=== PATIENT | female | born 1945 | race Caucasian/White ===

== ENCOUNTER 2022-03-15 11:30 | Outpatient (RCR) | payer OTHER, SELFPAY ==
--- NOTE | 2022-03-01 12:26 | ST.OPIE ---
Visit Care Team Role Provider Type Dora Price DO Family Provider Non-Staff Primary Care Provider Specialty: Family Practice Address: [address] [place] [address], [place], [address] Email: Attending Provider Referring Provider Specialty: Address: Phone: Fax: Email: Speech-Language Pathology Initial Evaluation ESCROW SECRETARY Clinical Swallow Evaluation Start: 03/01/22 11:26 Freq: Status: Active Protocol: Document 03/01/22 11:26 ZS (Rec: 03/01/22 11:29 ZS [id number]) Clinical Swallow Evaluation Session Time Visit Start Time 11:30 Visit Stop Time 12:00 Total Visit Minutes 30 Visit Information Visit Number Initial Evaluation Plan of Care Dates 03/01/2022 - 09/21/2022 Insurance Information [place] Referral Referring Provider Dr. Lanny Ferrari Reason for Referral Swallow evaluation as baseline before DBS treatment for tremors Setting Assessment Location Outpatient Care Visit Type Note Type Initial evaluation Next Note Type Next Note Type Treatment Note Patient Information Identification Type Name History Maryellen is a 76 year old female pursuing deep brain stimulation for tremor. Prior to beginning this treatment, she is getting a swallow evaluation to determine baseline skills as DBS can result in increased swallowing difficulty. Maryellen reported concerns for her voice given her vocal tremor, stating her and others have a hard time understanding her when she is speaking. She stated she does better when engaged in conversation, but can have difficulty with answers to quick questions. Maryellen added that she received a botox injection about 2 weeks ago in the back of her neck to reduce tremors in her neck for increased head stability, and added they increased the dosage for this injection. She stated since this injection, she has had increased difficulty swallowing as food will not go straight down the way it used to but does not feel like it gets stuck. Maryellen stated she notices the most difficulty with pills and added that she needs to take smaller bites right now because she cannot open her mouth as much as she used to. Subjective Observations Maryellen arrived on time and agreed to participate in all assessment activities. Reported by Patient Other Symptoms Difficulty swallowing pills Current Diet Regular,Thin liquids Baseline Feeding Method Independent in self-feeding Objective Assessment Mental Status Alert,Responsive,Cooperative Oral Integrity WFL Dentition Within normal limits Lip Function Within normal limits Observation of Lips at Rest Symmetrical Pucker Within normal limits Lip Retraction Within normal limits Alternating Pucker/Lip Retraction Within normal limits Tongue Function Within normal limits Observations of Tongue at Rest Within normal limits Tongue Protrusion Within normal limits Tongue Lateralization Within normal limits Jaw Function Within normal limits Observations of Jaw at Rest Within normal limits Jaw Opening Within normal limits Jaw Closing Within normal limits Hard/Soft Palate Function Within normal limits Observations of Hard/Soft Palate Within normal limits Comment Maryellen presented with symmetrical features at rest and in motion. Dentition was present and WNL. Strength and ROM of jaw, tongue, and lips was WNL. Mild facial tremors noted when initiating movement , but these subsided as Maryellen moved. Vocal tremor and slow rate of speech observed and remained consistent throughout evaluation, however, intelligibility was 100%. Structure and function of oral mechanism appears WFL for the purposes of speech and swallowing. Food and Liquid Trials Position During Assessment Upright (90 degrees),In chair Liquids Trialed Thin Solids Trialed Puree,Dysphagia Mechanical, Mechanical Soft,Regular Administration Type Tea spoon,Cup single sip,Cup consecutive sips,Self-feeding Oral Impairment Within normal limits Oral Phase Comments No anterior loss of bolus. Maryellen stated she has difficulty opening her mouth wide to allow for food to enter her oral cavity and limited ROM of mouth was observed during eating, though appeared WFL. She exhibited a sufficient labial seal around the spoon to clear liquid and opened her mouth wide enough to accept a variety of appropriate bolus sizes. Mastication was timely and efficient and no oral residue was observed following PO trials. Pharyngeal Impairment Within normal limits Pharyngeal Phase Comments Audible swallows heard for each swallow. No overt signs or symptoms of aspiration observed. Pt reported difficulty swallowing pudding and cookie as well as just cookie, stating it felt like it wasn't moving down like it used to. Fatigue/Endurance Endurance WNL Comment No concerns for endurance at this time. Findings Swallowing Function Within normal limits Severity of Swallow Impairment Within normal limits Comment The pt presents with swallow function WNL based on results of bedside swallow evaluation. Due to stated difficulty with food moving through esophagus , a modified barium swallow study is recommended to visualize pharyngeal and esophageal swallow. Pt to return to outpatient clinic for evaluation of voice to determine exercises to help increase ease in communication with and other communication partners. Impact on Safety and Functioning No limitations Recommendations Instrumental Assessment Yes Frequency once a week Duration 45 minutes Recommended Solids Regular Recommended Liquids Thin Safety Precautions/Swallowing Feed only when alert,Reduce Recommendations distractions,Remain upright ( 90 degrees) during all oral intake,Small bites and sips when eating,Slow rate; swallow between bites Medication Recommendations As Tolerated Education Patient/Caregiver Education Described results of evaluation,Patient expressed understanding of evaluation, Patient expressed agreement with goals & treatment plans, Patient expressed understanding of feeding recommendations,Patient requires further education/ training Goals Short-term Goals 1. Pt will participate in modified barium swallow study to inform plan of care. 2. Pt will participate in voice evaluation to determine treatment plan.
--- NOTE | 2022-03-01 12:26 | ST.OPPOC ---
Physical, Occupational & Speech Therapy At [facility] Visit Care Team Role Provider Type Dora Price DO Family Provider Non-Staff Primary Care Provider Address: [address] [place] [address], [place], [address] Attending Provider Referring Provider Address: Phone: Fax: Speech Pathology Plan of Care Plan of Care Dates 03/01/2022 - 09/21/[address] Lanny Ferrari Patient History Maryellen is a 76 year old female pursuing deep brain stimulation for tremor. Prior to beginning this treatment, she is getting a swallow evaluation to determine baseline skills as DBS can result in increased swallowing difficulty. Maryellen reported concerns for her voice given her vocal tremor, stating her and others have a hard time understanding her when she is speaking. She stated she does better when engaged in conversation, but can have difficulty with answers to quick questions. Maryellen added that she received a botox injection about 2 weeks ago in the back of her neck to reduce tremors in her neck for increased head stability , and added they increased the dosage for this injection. She stated since this injection, she has had increased difficulty swallowing as food will not go straight down the way it used to but does not feel like it gets stuck. Maryellen stated she notices the most difficulty with pills and added that she needs to take smaller bites right now because she cannot open her mouth as much as she used to. Short-term Goals 1. Pt will participate in modified barium swallow study to inform plan of care. 2. Pt will participate in voice evaluation to determine treatment plan. Comment: Electronically Signed by: ROMA Ruiz 03/01/22 8220 If you are in agreement with this Plan of Care, please return a signed and dated copy. I have reviewed this Plan of Care and certify that the skilled therapy services above are required to meet the patient?s needs. Physician Signature Date Printed Name and Credentials Clinical Instructor Signature Printed Name and Credentials
--- NOTE | 2022-03-08 13:28 | ST.OPTN ---
Visit Care Team Role Provider Type Dora Price DO Family Provider Non-Staff Primary Care Provider Address: [address] [place] [address], [place], [address] Attending Provider Referring Provider Address: Phone: Fax: FAA CERTIFIED POWERPLANT MECHANIC Treatment Note FAA CERTIFIED POWERPLANT MECHANIC Treatment Note Start: 03/08/22 12:16 Freq: Status: Active Protocol: Document 03/08/22 12:17 ZS (Rec: 03/08/22 12:19 ZS [id number]) Speech Pathology Treatment Note Session Time Visit Start Time 11:30 Visit Stop Time 12:05 Total Visit Minutes 40 Visit Information Visit Number 1 Plan of Care Dates 03/01/2022 - 09/21/2022 Insurance Information [facility] Treatment Setting Outpatient Care Visit Type Note Type Treatment Note Next Note Type Next Note Type Treatment Note General Information Patient History Maryellen is a 76 year old female pursuing deep brain stimulation for tremor. Prior to beginning this treatment, she is getting a swallow evaluation to determine baseline skills as DBS can result in increased swallowing difficulty. Maryellen reported concerns for her voice given her vocal tremor, stating her and others have a hard time understanding her when she is speaking. She stated she does better when engaged in conversation, but can have difficulty with answers to quick questions. Maryellen added that she received a botox injection about 2 weeks ago in the back of her neck to reduce tremors in her neck for increased head stability, and added they increased the dosage for this injection. She stated since this injection, she has had increased difficulty swallowing as food will not go straight down the way it used to but does not feel like it gets stuck. Maryellen stated she notices the most difficulty with pills and added that she needs to take smaller bites right now because she cannot open her mouth as much as she used to. Subjective Identification Type Name Identification Reconciled With Medical Record Observations/Patient Presentation Maryellen arrived on time and agreed to participate in all assessment activities. She reported decreased neck strain from last botox injection, but stated she continues to get neck pain/stiffness and headaches when she looks down for long periods of time or if she has a busy schedule. Chief Complaint(s) Swallowing,Voice Objective Short Term Goals 1. Pt will participate in modified barium swallow study to inform plan of care. 2. Pt will participate in voice evaluation to determine treatment plan. Treatment Activities Completed voice evaluation. Provided update on referral for modified barium swallow study. Assessment Assessment of Improvement Maryellen produced a prolonged ah with an average time of 2. 2 seconds, which is significantly impaired. Difficulty sustaining ah was due to vocal tremor, which disrupted airflow and Maryellen' s ability to sustain a prolonged vowel. Improvement noted with sustaining /s/ and /z/, though her s/z ratio was 1.5, which is mildly impaired. She achieved a high pitch of 588 Hz and a low pitch of 68 Hz, with an average high of 527.6 Hz and an average low pitch of 79.3 Hz. Her average loudness was 70.6 dB, which she maintained across all trials. Increased loudness to 71 dB for paragraph reading and decreased loudness to 68 dB during conversational speech. Maryellen completed the voice handicap index (VHI) and results place her total score at 53, indicating a moderate impact of her voice on daily functioning. Primary impairment noted is vocal tremor, which is noted to be moderate. Reviewed with Patient Goals Plan Amount of Therapy Recommended 6 Months Frequency of Treatment Once a Week Length of Session 45 Minutes Therapeutic Contents Swallowing/Feeding,Voice Training Provided Patient/Caregiver Instruction Plan of Care,Questions/ Concerns Therapy Recommendations Continue with Current Program
--- NOTE | 2022-03-15 13:13 | ST.OPTN ---
Visit Care Team Role Provider Type Dora Price DO Family Provider Non-Staff Primary Care Provider Address: [address] [place] [address], [place], [address] Attending Provider Referring Provider Address: Phone: Fax: LADIES LOCKER ROOM ATTENDANT Treatment Note LADIES LOCKER ROOM ATTENDANT Treatment Note Start: 03/08/22 12:16 Freq: Status: Active Protocol: Document 03/15/22 13:06 ZS (Rec: 03/15/22 13:13 ZS [id number]) Speech Pathology Treatment Note Session Time Visit Start Time 11:30 Visit Stop Time 12:00 Total Visit Minutes 30 Visit Information Visit Number 2 Plan of Care Dates 03/01/2022 - 09/21/2022 Insurance Information [facility] Treatment Setting Outpatient Care Visit Type Note Type Treatment Note Next Note Type Next Note Type Treatment Note General Information Patient History Maryellen is a 76 year old female pursuing deep brain stimulation for tremor. Prior to beginning this treatment, she is getting a swallow evaluation to determine baseline skills as DBS can result in increased swallowing difficulty. Maryellen reported concerns for her voice given her vocal tremor, stating her and others have a hard time understanding her when she is speaking. She stated she does better when engaged in conversation, but can have difficulty with answers to quick questions. Maryellen added that she received a botox injection about 2 weeks ago in the back of her neck to reduce tremors in her neck for increased head stability, and added they increased the dosage for this injection. She stated since this injection, she has had increased difficulty swallowing as food will not go straight down the way it used to but does not feel like it gets stuck. Mayrellen stated she notices the most difficulty with pills and added that she needs to take smaller bites right now because she cannot open her mouth as much as she used to. Subjective Identification Type Name Identification Reconciled With Medical Record Observations/Patient Presentation Maryellen arrived on time and agreed to participate in all assessment activities. Chief Complaint(s) Swallowing,Voice Objective Short Term Goals 1. Pt will participate in modified barium swallow study to inform plan of care. 2. Pt will participate in voice evaluation to determine treatment plan. Treatment Activities Reviewed results of voice evaluation with pt. Provided pt education regarding vocal tremor and treatment options. Provided update regarding status of referral for MBSS. Assessment Assessment of Improvement Maryellen expressed understanding of treatment options for vocal tremor and will talk to her PCP regarding botox treatments. Referral was sent to [facility] instead of and pt will continue with process of booking MBS at [facility]. Cancelling future appointments and pt will call to schedule follow-up following her MBS. Reviewed with Patient Goals,Home Exercise Program Plan Amount of Therapy Recommended 6 Months Frequency of Treatment Once a Week Length of Session 45 Minutes Therapeutic Contents Swallowing/Feeding,Voice Training Provided Patient/Caregiver Instruction Plan of Care,Questions/ Concerns Therapy Recommendations Continue with Current Program
--- NOTE | 2022-05-30 14:48 | ST.OPDS ---
Visit Care Team Role Provider Type Dora Price DO Family Provider Non-Staff Primary Care Provider Address: [address] [place] [address], [place], [address] Attending Provider Referring Provider Address: Phone: Fax: PRODUCTION ASSEMBLY OPERATOR Treatment Note PRODUCTION ASSEMBLY OPERATOR Treatment Note Start: 03/08/22 12:16 Freq: Status: Active Protocol: Document 05/30/22 14:44 ZS (Rec: 05/30/22 14:47 ZS [id number]) Speech Pathology Treatment Note Visit Information Plan of Care Dates 03/01/2022 - 09/21/2022 Insurance Information [facility] Treatment Setting Outpatient Care Visit Type Note Type Discharge Summary General Information Patient History Maryellen is a 76 year old female pursuing deep brain stimulation for tremor. Prior to beginning this treatment, she is getting a swallow evaluation to determine baseline skills as DBS can result in increased swallowing difficulty. Maryellen reported concerns for her voice given her vocal tremor, stating her and others have a hard time understanding her when she is speaking. She stated she does better when engaged in conversation, but can have difficulty with answers to quick questions. Maryellen added that she received a botox injection about 2 weeks ago in the back of her neck to reduce tremors in her neck for increased head stability, and added they increased the dosage for this injection. She stated since this injection, she has had increased difficulty swallowing as food will not go straight down the way it used to but does not feel like it gets stuck. Maryellen stated she notices the most difficulty with pills and added that she needs to take smaller bites right now because she cannot open her mouth as much as she used to. Subjective Identification Type Name Identification Reconciled With Medical Record Chief Complaint(s) Swallowing,Voice Objective Short Term Goals 1. Pt will participate in modified barium swallow study to inform plan of care. 2. Pt will participate in voice evaluation to determine treatment plan. Treatment Activities Called pt to notify of discharge from speech therapy due to time passed since previous appointment. New referral necessary to continue with speech therapy. Assessment Assessment of Improvement Maryellen was pursuing MBS at [facility] prior to scheduling additional speech therapy appointments. Called pt to follow-up regarding MBS, but no answer and voicemail box was full. Discharging at this time due to time passed since previous appointment. Pt will need to contact PCP for a new referral if she would like to continue with speech therapy. Plan Therapy Recommendations Discharge from Speech Therapy Reason for Discharge Last appointment on 04/05/22. New referral needed for continued services.
--- NOTE | 2022-05-30 14:49 | ST.OPDS ---
Visit Care Team Role Provider Type Dora Price DO Family Provider Non-Staff Primary Care Provider Address: [address] [place] [address], [place], [address] Attending Provider Referring Provider Address: Phone: Fax: SCHOOL BUS TECHNICIAN Treatment Note SCHOOL BUS TECHNICIAN Treatment Note Start: 03/08/22 12:16 Freq: Status: Active Protocol: Document 05/30/22 14:44 ZS (Rec: 05/30/22 14:47 ZS [id number]) Speech Pathology Treatment Note Visit Information Plan of Care Dates 03/01/2022 - 09/21/2022 Insurance Information [facility] Treatment Setting Outpatient Care Visit Type Note Type Discharge Summary General Information Patient History Maryellen is a 76 year old female pursuing deep brain stimulation for tremor. Prior to beginning this treatment, she is getting a swallow evaluation to determine baseline skills as DBS can result in increased swallowing difficulty. Maryellen reported concerns for her voice given her vocal tremor, stating her and others have a hard time understanding her when she is speaking. She stated she does better when engaged in conversation, but can have difficulty with answers to quick questions. Maryellen added that she received a botox injection about 2 weeks ago in the back of her neck to reduce tremors in her neck for increased head stability, and added they increased the dosage for this injection. She stated since this injection, she has had increased difficulty swallowing as food will not go straight down the way it used to but does not feel like it gets stuck. Maryellen stated she notices the most difficulty with pills and added that she needs to take smaller bites right now because she cannot open her mouth as much as she used to. Subjective Identification Type Name Identification Reconciled With Medical Record Chief Complaint(s) Swallowing,Voice Objective Short Term Goals 1. Pt will participate in modified barium swallow study to inform plan of care. 2. Pt will participate in voice evaluation to determine treatment plan. Treatment Activities Called pt to notify of discharge from speech therapy due to time passed since previous appointment. New referral necessary to continue with speech therapy. Assessment Assessment of Improvement Maryellen was pursuing MBS at [facility] prior to scheduling additional speech therapy appointments. Called pt to follow-up regarding MBS, but no answer and voicemail box was full. Discharging at this time due to time passed since previous appointment. Pt will need to contact PCP for a new referral if she would like to continue with speech therapy. Plan Therapy Recommendations Discharge from Speech Therapy Reason for Discharge Last appointment on 03/15/22. New referral needed for continued services.
== END 2022-05-31 07:59 ==
LOC: SP 11:30
PROVIDERS: Family Provider Family Medicine; PCP Family Medicine
DX: G25.0 Essential tremor (principal)
CPT/HCPCS: 92507; 92610

== ENCOUNTER 2023-09-23 08:22 | Day surgery (SDC) | payer OTHER, SELFPAY ==
[2023-09-18 07:54] VITALS: BMI 21.5
[2023-09-23] VITALS (8 sets, daily range): BP systolic 113–152; BP diastolic 67–83; PULSE 54–90; RESP 15–98; TEMP 36.1–37.1; O2SAT 95–98; BMI 20.9
[2023-09-23] MEDS: LACTATED RINGERS 1,000 ML 42 ML IV (09:05)
[2023-09-23] MEDS: ACETAMINOPHEN 325 MG TABLET 975 MG PO (09:39)
[2023-09-23] MEDS: CELECOXIB 200 MG CAPSULE PO (09:40)
[2023-09-23] MEDS: VANCOMYCIN 1,000 MG/200 ML PIGGYBACK 200 MG IV (09:54)
--- NOTE | 2023-09-23 10:35 | PM.PREOP ---
Pre-operative Note Interval Note History & Physical reviewed/Exam performed by Physician: Yes Changes to H&P: No
--- NOTE | 2023-09-23 10:43 | SUR.OPER ---
Supine on padded OR bed, head on pillow, arms secured on padded arm boards at <90 degrees abduction, legs uncrossed, safety belt at thigh, tape over blanket over lower legs. operative leg draped free on field
--- NOTE | 2023-09-23 10:54 | PM.PREOP ---
Pre-operative Note Interval Note History & Physical reviewed/Exam performed by Physician: Yes Changes to H&P: No
--- NOTE | 2023-09-23 10:54 | PM.OP.1 ---
Operative Date/Time/Diagnoses Date of procedure: 09/23/23 Time of procedure: 11:20 Pre-op diagnosis: Right knee OA severe Post-op diagnosis: same Procedure & Clinicians Procedure: Right total knee arthroplasty Same procedure as scheduled: Yes Indications: The patient has had progressively worsening right knee pain with radiographic changes consistent with arthritis. Non-operative management has failed and the patient has requested total knee replacement. The risks, benefits and alternatives to surgery were discussed with the patient prior to proceeding. Risks discussed included, but were not limited to, failure to relieve pain, stiffness, infection, nerve damage, deep venous thrombosis, pulmonary embolism, stroke, coma, heart attack, permanent paralysis and , as well as the potential need for eventual revision of the prosthetic. Surgeon: Joi Mancini Box Closing Machine Operator: Jarrod Lopez Anesthesia Type: Spinal Operative Notes Findings: Severe left knee arthritis, adequate stability, adequate bone, flexion contracture preoperatively Closure Type: primary Specimen(s): none sent Prosthetic devices, grafts, tissues, transplants, or devices: Mancini and nephew olive BCS 2 size 4 femur, size 2 tibia, +9 poly, 35 x 7-1/2 mm patella Estimated Blood Loss (mL): 200 Blood products transfused: none Tourniquet time (min): 81 Procedure in detail: The patient was seen in the pre-operative area, where the patient identified the right knee as the operative site and this was marked with my initials. The patient received pre-operative antibiotics, and was taken to the operating room and placed on the operative table in the supine position. After satisfactory anesthesia, a senior administrative services officer out was performed. The right leg was encircled with a tourniquet about the proximal thigh, and the leg was prepared from the toes to the tourniquet with ChloroPrep in the usual fashion and draped through sterile drapes. The leg was elevated and exsanguinated with Eschmark bandage and the tourniquet inflated to [250] mmHg pressure. A PA was used during the procedure was essential for intraoperative retraction and safe implantation of the components. The knee was approached through an approximately 18 cm incision centered over the patella and carried into the knee through a medial parapatellar arthrotomy. A portion of the medial and lateral meniscus was resected. Soft tissue was carefully mobilized around the patella the patella was measured with a caliper. Bone was resected from the patella and the patellar height was reconstituted with up an appropriate sized patellar component. A cover was then placed on the patella. A small amount of additional medial and lateral meniscus was resected. The distal femur was cut at 5?. A [+2] cut was used. It looked like an appropriate distal femoral cut and the cut was made without difficulty. An extramedullary guide was used for the tibial cut. 10 mm was resected off the least affected side. We checked the extension gap looked like there was a little bit of tightness and an additional tibia was resected. The tibia was prepared. The rotation was assessed. The patient was placed in extension residual medial and lateral meniscus as well as any residual bone was carefully resected. 2 mm additional tibia was resected. Hemostasis was achieved especially posteriorly. Additional local was injected into the posterior capsule. The extension gap was assessed and additional releases for gap balancing were performed as necessary. She was a little tight laterally and we meticulously released lateral capsule and some of the lateral synovium as well as the anterolateral aspect of the tibia. It was checked with the gap corral boss. The femoral component was trial was placed and the notch was finished. The rotation was assessed and the appropriate size femoral guide was placed on the distal femur and finishing cuts were made. There was no evidence of notching. The anterior, posterior and chamfer cuts were then made. The posterior osteophytes and soft tissues were then removed. The posterior capsule was injected with part of a mixture of 60 ml 0.25% Marcaine mixed with 20 ml Exparel for post operative pain control. The remainder of this mixture was injected into the capsule and subcutaneous tissues during cement curing. The tibial and femoral components were then placed and the knee placed through a range of motion. Range of motion was [0-130], with good stability throughout the range. The trials were then removed, and the tibia was finished. The bone was prepared with pulsatile lavage, and dried with a sponge. Cement was applied and the final prosthetics placed. Excess cement was removed during and after cement curing. A brief Betadine soak was performed. After confirming there was no extruded cement posteriorly, the final tibial insert was placed. The knee was copiously irrigated and the tourniquet deflated. Hemostasis was obtained with the Bovie cautery. The capsule was closed with interrupted nonabsorbable suture. The subcutaneous layer was closed with barbed sutures, and the skin with a running 3-0 V-Lock suture and Surgical glue. An Aquacel Ag dressing was applied and the patient was taken to recovery having tolerated the procedure well. Complications: none Post-operative Condition: stable Disposition: Acute Care Plan for aftercare: The patient will be maintained on a standard total knee replacement protocol with weight bearing as tolerated. The patient will receive aspirin and sequential compression devices for DVT prophylaxis. The patient will be discharged home when safe for the home environment.
[2023-09-23] MEDS: CEFAZOLIN 2 GM/100 ML PREMIX 100 ML IV (10:59)
--- NOTE | 2023-09-23 11:00 | DI.RAD.S_ITS ---
PROCEDURE: XR KNEE RT 1TO2V INDICATIONS: TKA TECHNIQUE: 2 view(s) of the knee acquired. COMPARISON: None. FINDINGS: Bones: Patient is status post knee joint arthroplasty. Hardware components are in expected positions. Visualized bony structures are intact. Soft tissues: Overlying postoperative changes are noted. IMPRESSION: Expected post-operative appearance of a knee arthroplasty. Dictated by: Blessing Murphy M.D. on 09/23/2023 at 18:09 Approved by: Blessing Murphy M.D. on 09/23/2023 at 18:09
[2023-09-23] MEDS: BUPIVACAINE 0.25% (PF) VIAL 30 ML INJ (11:37)
[2023-09-23] MEDS: BUPIVACAINE LIPOSOME 266 MG/20 ML VIAL INJ (11:37)
[2023-09-23] MEDS: TRANEXAMIC ACID 1,000 MG VIAL 1000 MG INJ (11:37)
[2023-09-23] MEDS: OXYCODONE IR 5 MG TABLET 2.5 MG PO (13:40)
[2023-09-23] MEDS: ONDANSETRON 4 MG/2 ML INJ IV (13:41)
[2023-09-23] MEDS: IBUPROFEN 400 MG TABLET PO (14:28)
[2023-09-23] MEDS: LACTATED RINGERS 1,000 ML 100 ML IV (14:29)
--- NOTE | 2023-09-23 15:03 | PT.IIE ---
Current Diagnoses Unilateral primary osteoarthritis, right knee (09/23/23) Surgery Performed Operation Date: 09/23/23 10:45 Actual Procedures p Total Knee Arthroplasty(Right) - Joi Mancini MD Surgical History (Last Updated 09/18/23 @ 09:38 by Pennie Oquendo, RN) History of surgery Hx of appendectomy Hx of bilateral cataract extraction Hx of blepharoplasty Hx of cholecystectomy Hx of foot surgery Hx of tonsillectomy S/P deep brain stimulator placement (10/23/22) Status post total hip replacement, right (~01/2020) Medical History (Last Updated 09/18/23 @ 09:23 by Pennie Oquendo, RN) Allergic rhinitis Anxiety Cervical dystonia Chronic pain Diverticulosis Easy bruisability Essential tremor Hemochromatosis Hyponatremia Lactose intolerance Memory changes Nephrolithiasis Osteoarthritis Osteopenia Pulmonary nodule RLS (restless legs syndrome) Sinus bradycardia Solar purpura Voice tremor (~2012) Physical Therapy Inpatient Evaluation/Re-Eval M1 PT/OT-IP Prior Functional Status Start: 09/23/23 14:23 Freq: NEEDED Status: Active Protocol: Document 09/23/23 14:25 MB (Rec: 09/23/23 15:03 MB [id number]) Medical Review Prior Functional Status Medical History Reviewed Yes Diet/Fluid Consistency Regular Communication Pt's speech has low vocal tone and is very dyskinetic/ dysmetric Mobility and Gait I Activities of Daily Living and IADL's I Social History Household Members spouse Living Arrangements House Number of Floors (Floors) One Floor Number of Stairs To Enter/Railing? Platform steps to enter Home Environment Standard Height Toilet,Walk in Shower,Built-In Shower Seat Home Equipment Front Wheel Walker Employment Status Retired M2 PT-IP Current Condition Start: 09/23/23 14:23 Freq: NEEDED Status: Active Protocol: Document 09/23/23 14:25 MB (Rec: 09/23/23 15:03 MB [id number]) Physical Therapy Current Condition Current Condition Evaluation Date 09/23/23 Treatment Diagnosis R TKA M3 PT-IP Subjective Start: 09/23/23 14:23 Freq: NEEDED Status: Active Protocol: Document 09/23/23 14:25 MB (Rec: 09/23/23 15:03 MB [id number]) Subjective Physical Therapy Visit Type Type Initial Evaluation Visit Start Time 14:25 Visit Stop Time 14:55 Total Visit Minutes 30 Number of 4TH GRADE MATH TEACHER Visits 0 Physical Therapy Visit Comments Patient Comments To go home, go to OPPT Therapy Pain Assessment Pain When Pain Assessed During Mobility Pain Present Pain Present Denied Pain M4 PT-IP Mobility and Gait Start: 09/23/23 14:23 Freq: NEEDED Status: Active Protocol: Document 09/23/23 14:25 MB (Rec: 09/23/23 15:03 MB [id number]) PT-Bed Mobility Assessment Supine to Sit Supine to Sit Standby Assistance,1 Person Assistance,Head of Bed Elevated,Bedrails Scooting Scooting to Edge of Bed Standby Assistance PT-Transfer Assessment Equipment Transfer Assistive Device Gait Belt,Front Wheeled Walker Orthotic/Prosthetic Devices or Brace: No Transfer Ability Level of Assist Standby Assistance Gait Assessment Gait Gait Assistance Required: Standby Assistance,1 Person Assist Distance (Feet) 100 Able to Maintain Weight Bearing Status Yes During Gait Assistive Devices Assistive Device Gait Belt,Front Wheeled Walker Orthotic/Prosthetic Devices or Brace: No Gait Deviations General Gait Pattern Antalgic,Decreased Stride Length,Decreased Feet Clearance,Step-to Gait Factors Limiting Gait Function Factors Limiting Gait Function Decreased Activity Tolerance, Limited Range of Motion,Pain Comments Gait Comments Pt gait trains 10'x2 and 100' x1 with RW and SBA. She has step-to pattern and decreased toe off and right knee ROM. Pt will have assist at d /c and he is nearby for treatment. Stair Climbing Assessment Evaluation Level of Assist On Stairs Standby Assistance,1 Person Assistance Devices Stair Climbing Assistive Devices Front Wheel Walker Technique/Endurance Stair Climbing Direction Ascend and Descend Stair Climbing Technique Step to Step Number of Steps Climbed 1 Query Text: Stair Climbing Set # Repetitions (reps) 1 Comments Stair Climbing Comments Platform step: RW and cues for moving feet close to step, walker first, left foot ascend first and right foot descend first PT-Balance Assessment Sitting Balance and Reactions Static Sitting Balance Ability Good Dynamic Sitting Balance Ability Good Standing Balance and Reactions Static Standing Balance Ability Good Dynamic Standing Balance Ability Good Device Used RW M5 PT-IP Objective Assessments Start: 09/23/23 14:23 Freq: NEEDED Status: Active Protocol: Document 09/23/23 14:25 MB (Rec: 09/23/23 15:03 MB [id number]) Orientation Orientation/Cognition Level of Alertness Alert Orientation Name,Age,Birthday,Month,Date, Year,Day of Week,Place, Situation Language Function Ability No Deficits Noted Safety Awareness Understands Safety Issues Memory Description No Deficits Noted Comments Very dysmetric/dyskinetic speech, some tremor of neck, poor breathing strategy/ breathy speech Gross Range of Motion Upper Extremity ROM Assessment Within Functional Limits Lower Extremity ROM Assessment Right Impaired Impairments R knee 15-75 deg AAROM in supine and sitting Strength Upper Extremity Strength Assessment Within Functional Limits Lower Extremity Strength Assessment Right Impaired Comments Strength Comments Did not MMT right LE M7 PT-IP Assessment and Plan Start: 09/23/23 14:23 Freq: NEEDED Status: Active Protocol: Document 09/23/23 14:25 MB (Rec: 09/23/23 15:03 MB [id number]) PT Summary Assessment and Plan Potential Rehabilitation Potential Excellent Status of Condition at Evaluation Stable Summary Impairments Pain,ROM,Strength,Transfers, Gait,Activity Tolerance Progress Towards Goals Safe For Discharge Assessment Summary Pt is a 78 y/o female who presents with decreased right knee ROM and strength and decreased gait s/p right TKA today. She does very well with PT and is SBA for bed mobility, transfers, gait and step training. is nearby for assessment and can help at home. She has OPPT set -up already. Ed pt in right knee flexion and extension exercises. D/c acute PT. Frequency of Treatment Frequency Of Treatment Discharge Weight Bearing Status Weight Bearing Status Weight Bear as Tolerated Recommendations To Nursing Amount of Assist Needed Standby Assistance,1 Person Assist Discharge Recommendations PT Discharge Recommendations Home with Assistance, Outpatient PT Transportation Needs at Discharge Private Vehicle
== END 2023-09-23 18:08 | disposition home or self-care (01) ==
LOC: OR 08:31 → AC 08:31
PROVIDERS: Family Provider Family Medicine; PCP Family Medicine; Referring Provider Orthopaedic Surgery; Visit Provider Orthopaedic Surgery
PROC: 0SRC0JZ Replacement of Right Knee Joint with Synthetic Substitute, Open Approach (ICD-10-PCS; CPT 27447; principal; 2023-09-23 10:45)
DX: M17.11 Unilateral primary osteoarthritis, right knee (principal)
CPT/HCPCS: 27447; 73560; 97116; 97161; C1776; C9290; J0690; J1100; J2405; J2704